=== PATIENT | male | born 1950 | race Caucasian/White ===

== ENCOUNTER 2018-06-15 09:38 | Outpatient (CLI) | payer MEDICARE ==
--- NOTE | 2018-06-15 12:54 | MRI ---
MRI OF THE RIGHT SHOULDER WITHOUT CONTRAST: INDICATION: Right shoulder injury. FINDINGS: There is a large full-thickness tear involving the supraspinatus at the footprint measuring 1.3 x 1.9 cm greatest mediolateral AP dimension respectively. There is moderate tendinosis of the intraarticu lar biceps tendon. There is a type II SLAP tear with high T2 signal seen extending from the level ju st anterior to the biceps anchor into the posterior superior labrum with a 2.7 cm mm paralabral cyst best seen on image 10 of series 11. This is also suspected on image 13 of series 4. The inferior gl enohumeral labral ligamentous complex appears intact. The glenohumeral articular surface is normal-a ppearing. There is mild to moderate AC joint osteoarthrosis. There is moderate tendinosis of the hightower praspinatus. There is fluid in the subacromial subdeltoid space. There is mild to moderate tendinos is of the subscapularis. The biceps tendon is located. IMPRESSION: 1. Full-thickness supraspinatus tear. 2. Type II superior labrum anterior to posterior tear with paralabral cyst seen along the posterior superior aspect of the glenohumeral joint. 3. Moderate acromioclavicular joint osteoarthrosis. 4. Moderate intraarticular biceps tendinosis and moderate supraspinatus and subscapularis tendinosis . POS: [facility]
== END 2018-06-15 09:39 | disposition home or self-care (01) ==
LOC: TBSIIMAG 09:38
PROVIDERS: ATTEND Orthopaedic Surgery
DX: S46.011A Strain of muscle(s) and tendon(s) of the rotator cuff of right shoulder, initial encounter (principal); S43.431A Superior glenoid labrum lesion of right shoulder, initial encounter; M19.011 Primary osteoarthritis, right shoulder; M75.21 Bicipital tendinitis, right shoulder; M75.81 Other shoulder lesions, right shoulder

== ENCOUNTER 2018-07-28 07:47 | Outpatient (CLI) | payer MEDICARE ==
--- NOTE | 2018-07-28 10:50 | ULT ---
BILATERAL RENAL ULTRASOUND: HISTORY: Renal cysts. COMPARISON: 07/24/2017 TECHNIQUE: Multiplanar bowers-scale and color Doppler images were obtained in a renal ultrasound. FINDINGS: There are anechoic cysts in the right kidney, measuring up to 4 cm in size. There is an anechoic cys t in the left kidney, measuring up to 2.9 cm in size. No hydronephrosis is seen. There is normal co rtical echogenicity. The kidneys measure 10.5 and 10.9 cm in length on the right and left, respectiv velia. Limited visualization of the urinary bladder is unremarkable. IMPRESSION: Stable bilateral renal cysts. POS: [facility]
== END 2018-07-28 07:48 | disposition home or self-care (01) ==
LOC: ULT 07:47
PROVIDERS: ATTEND Urology
DX: N28.1 Cyst of kidney, acquired (principal); Z12.5 Encounter for screening for malignant neoplasm of prostate; R35.0 Frequency of micturition
CPT/HCPCS: 76770; 80048; 81003; G0103; 36415

== ENCOUNTER 2018-08-20 08:23 | Outpatient (CLI) | payer MEDICARE ==
[2018-08-20 09:50] LABS: Mean Corpuscular HGB CONC 33.6 g/dL (32.0-36.0); Mean Corpuscular Hemoglobin 31.2 pg (27.0-31.0); Mean Corpuscular Volume 92.7 fL (78.0-98.0); Mean Platelet Volume 7.6 fL (7.4-10.4); Platelet Count 203 thou/uL (130-400); RBC Distribution Width 11.5 % (11.5-14.5); Red Blood Cell (RBC) Count 4.81 mill/uL (4.70-6.10); White Blood Cell (WBC) Count 5.8 thou/uL (4.8-10.8)
[2018-08-20 10:13] LABS: Anion Gap 10 mmol/L (10-20); BUN (Urea Nitrogen) 23 mg/dL (8.4-25.7); Calc. Creatinine Clearance 0 mL/min (70-130); Calcium 9.5 mg/dL (7.8-10.44); Carbon Dioxide 28 mmol/L (23-31); Chloride 106 mmol/L (98-107); Estimated GFR-MDRD 56; Glucose 103 mg/dL (80-115); Potassium 4.2 mmol/L (3.5-5.1); Sodium 140 mmol/L (136-145)
--- NOTE | 2018-08-20 15:22 | EKG ---
Test Reason : Blood Pressure : / mmHG Vent. Rate : 055 BPM Atrial Rate : 055 BPM P-R Int : 190 ms QRS Dur : 084 ms QT Int : 406 ms P-R-T Axes : 019 063 061 degrees QTc Int : 388 ms Sinus bradycardia Cannot rule out Anterior infarct , age undetermined Abnormal ECG No previous ECGs available Confirmed by KARL MARIA, DR. Bryant ([id number]) on 08/20/2018 3:22:40 PM Referred By: NABOR Confirmed By:DR. Annette BARAJAS MD
== END 2018-08-20 08:24 | disposition home or self-care (01) ==
LOC: LABBT 08:23
PROVIDERS: ATTEND Orthopaedic Surgery
DX: Z01.818 Encounter for other preprocedural examination (principal); M75.101 Unspecified rotator cuff tear or rupture of right shoulder, not specified as traumatic
CPT/HCPCS: 80048; 85027; 93005; 93010

== ENCOUNTER 2018-08-28 05:46 | Day surgery (SDC) | payer MEDICARE ==
[2018-08-20 08:37] VITALS: BMI 33.0
[2018-08-28] MEDS ORDERED: CEFAZOLIN/Water 2 GM/20 ML SYRINGE ONE (06:06)
[2018-08-28] MEDS ORDERED: Fentanyl 100 MCG/2 ML VIAL ONE (06:35)
[2018-08-28] MEDS ORDERED: Midazolam HCl 2 mg/2 ml Vial ONE (06:35)
[2018-08-28] MEDS ORDERED: HYDROcodone/Acetaminophen 10/325 mg Tablet PO PRN ×2 (06:51)
[2018-08-28] MEDS ORDERED: Ketorolac Tromethamine 30 MG/ML VIAL IVP PRN (06:51)
[2018-08-28] MEDS ORDERED: Ropivacaine 0.2% 550 ML 550 ML NERVE BLCK SCH (06:51)
[2018-08-28] MEDS ORDERED: Zolpidem Tartrate 5 MG TAB PO PRN (06:51)
[2018-08-28] MEDS ORDERED: Ondansetron HCl/PF 4 MG/2 ML Vial IVP PRN (06:51)
[2018-08-28] MEDS ORDERED: traMADol HCl 50 MG TAB PO PRN ×2 (06:51)
[2018-08-28] MEDS ORDERED: Promethazine HCl 25 MG/ML VIAL IM PRN (06:51)
[2018-08-28] MEDS ORDERED: Fentanyl 100 MCG/2 ML VIAL IV PRN (06:52)
[2018-08-28] MEDS ORDERED: Ropivacaine 0.2% HCl/PF (40 MG/20 ML VIAL) ONE (09:45)
[2018-08-28] MEDS ORDERED: Ropivacaine 0.5% HCl/PF (150 MG/30 ML VIAL) ONE (09:45)
[2018-08-28] MEDS ORDERED: PROPOFOL 200 MG/20 ML VIAL ONE (10:26)
[2018-08-28] MEDS ORDERED: Ondansetron HCl/PF 4 MG/2 ML Vial ONE (10:26)
[2018-08-28] MEDS ORDERED: Lidocaine 1% PF 5 ML VIAL ONE (10:26)
[2018-08-28] MEDS ORDERED: Glycopyrrolate 0.2 MG/ML 5 ML SYRINGE ONE (10:26)
--- NOTE | 2018-08-28 11:26 | OP ---
DATE OF PROCEDURE: 08/28/2018 PREOPERATIVE DIAGNOSES: Rotator cuff tear, biceps tendinitis and SLAP tear right shoulder. PROCEDURES: Arthroscopic subacromial decompression, arthroscopic rotator cuff repair, arthroscopic b iceps tenotomy. SURGEON: Kvng Denise M.D. ANESTHESIA: General. MARGIN TRIMMER: Markos Russell PA-C. BLOOD LOSS: Minimal. SPECIMEN: None. DRAINS: None. COMPLICATIONS: None. NARRATIVE REPORT: The patient was taken to the operating room where general anesthesia was induced. The patient was placed in left lateral decubitus position. Right arm was prepped and draped in the usual sterile fashion. Fifteen pounds of traction was applied. Scope was placed in the glenohumeral joint. He really did not have any significant arthritis of the glenohumeral joint. Superior labrum was very fibrillated, the proximal biceps was hypertrophic and very poor quality. I tagged the leeroy ps and detached it proximally. The labrum was debrided. Scope was placed in subacromial bursa, exte nsive subacromial decompression was performed. CA ligament was taken down. Hemostasis was obtained. I freshened the greater tuberosity with a bur and then freshened up the rotator cuff tendon. I shilpa samuel 2 suture anchors through the roughened bone and sutured the rotator cuff down to bone with a good watertight repair. I used Arthrex corkscrew suture anchors, I tried to deliver the tendon from the rotator cuff, but in spite of the complete release I checked in the joint several times. The tendon was completely released inside, but could not be delivered through the cuff without making a large ho le in the cuff and I felt this was probably not indicated. Therefore, no tenodesis was performed. I left this with a tenotomy. The shoulder was drained. Portals closed with nylon suture. Sterile dr essings applied.
== END 2018-08-28 11:55 | disposition home or self-care (01) ==
LOC: SDC 05:46
PROVIDERS: ATTEND Orthopaedic Surgery
PROC: 0LQ14ZZ Repair Right Shoulder Tendon, Percutaneous Endoscopic Approach (ICD-10-PCS; principal; 2018-08-28)
PROC: 0RHJ44Z Insertion of Internal Fixation Device into Right Shoulder Joint, Percutaneous Endoscopic Approach (ICD-10-PCS; 2018-08-28)
PROC: 0RNJ4ZZ Release Right Shoulder Joint, Percutaneous Endoscopic Approach (ICD-10-PCS; 2018-08-28)
DX: M75.101 Unspecified rotator cuff tear or rupture of right shoulder, not specified as traumatic (principal); M75.21 Bicipital tendinitis, right shoulder; S43.431A Superior glenoid labrum lesion of right shoulder, initial encounter; I25.2 Old myocardial infarction; I25.10 Atherosclerotic heart disease of native coronary artery without angina pectoris; N40.0 Benign prostatic hyperplasia without lower urinary tract symptoms; Z79.02 Long term (current) use of antithrombotics/antiplatelets; Z79.82 Long term (current) use of aspirin; Z79.899 Other long term (current) drug therapy
CPT/HCPCS: 29826; 29827; 97139; A4306; G8984; G8985; G8986; J2001; J2250; J2405; J2704; J2795; J3010

== ENCOUNTER 2019-03-25 12:16 | Outpatient (CLI) | payer MEDICARE ==
--- NOTE | 2019-03-25 14:04 | MRI ---
MRI of lumbar spine: 03/25/2019 COMPARISON: None HISTORY: Back pain, lower extremity radiculopathy. TECHNIQUE: Multiplanar multisequence MR imaging of the lumbar spine without contrast FINDINGS: The sagittal STIR imaging demonstrates no focal area of osseous marrow edema. On the basis of 5 lumbar type vertebral bodies, the conus medullaris terminates at the T12 level. T12-L1: Intervertebral disc height and signal intensity within normal limits. No central canal or tacos ral foraminal stenosis. L1-2: There is an extradural lesion centered within the right neural foramen measuring 1.4 cm in chavez sverse dimension. It is hypointense on T1-weighted imaging and slightly hyperintense on T2-weighted imaging but not as hyperintense as expected for a perineural sleeve cyst. Thus, solid lesion cannot b e excluded and follow-up imaging with contrast media advised. There is disc desiccation and minimal disc bulge with no associated central canal or left neural foraminal stenosis. Right neural foraminal stenosis on the basis of above described extradural lesion. L2-3: Mild bilateral facet hypertrophy and hypertrophy of the ligamentum flavum. Mild disc space narr owing and disc desiccation with mild disc bulge. No significant central canal or neural foraminal stenosis. L3-4: There is disc space narrowing, disc desiccation, and mild disc bulge with no central canal sten osis. Bilateral facet and uncovertebral osteophyte formation noted with mild left neural foraminal stenosis. No significant right neural foraminal stenosis. L4-5: There is disc space narrowing and disc desiccation with mild disc bulge. There is a left parace ntral annular tear with an associated left paracentral disc herniation causing significant left lateral recess stenosis. Disc herniation measures 8-9 mm in craniocaudal dimension and demonstrates m ild inferior migration. Mild central canal stenosis. Bilateral facet hypertrophy with mild bilateral neural foraminal stenosis, right greater than left. L5-S1: Disc space narrowing and disc desiccation with mild disc bulge. Bilateral facet hypertrophy. N o significant central canal stenosis. Mild right and moderate left neural foraminal stenosis. T2 hyperintense lesions are noted within both kidneys suggesting bilateral renal cysts. IMPRESSION: 1. Left paracentral disc herniation at L4-5 with associated left lateral recess stenosis. 2. Nonspecific lesion within the neural foramen on the right at L1-2. Please see above discussion. Po st contrast imaging advised for further assessment. CODE T
== END 2019-03-25 12:17 | disposition home or self-care (01) ==
LOC: MRI 12:16
PROVIDERS: ATTEND Orthopaedic Surgery
DX: M51.16 Intervertebral disc disorders with radiculopathy, lumbar region (principal); M48.061 Spinal stenosis, lumbar region without neurogenic claudication; G95.9 Disease of spinal cord, unspecified
CPT/HCPCS: 72148

== ENCOUNTER 2019-06-17 10:11 | Outpatient (CLI) | payer MEDICARE ==
--- NOTE | 2019-06-17 11:46 | RAD ---
EXAM: 4 views of the lumbosacral spine HISTORY: Low back pain COMPARISON: None FINDINGS: 4 views of the lumbosacral spine shows normal height and alignment of the vertebral bodies without fracture or subluxation. Intervertebral discs are narrowed throughout the lumbar spine with small to moderate surrounding osteophytes. Alignment is unchanged with flexion and extension. Lens Inserter ior facet arthrosis is seen in the lower lumbosacral spine. The sacroiliac joints are unremarkable. IMPRESSION: Degenerative changes of the lumbar spine with unchanged alignment with bending
--- NOTE | 2019-06-17 13:13 | MRI ---
MRI LUMBAR SPINE WITH AND WITHOUT CONTRAST: DATE: 06/17/2019. 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 M48.061, spinal stenosis, lumbar region, without neurogenic claudi cation. M54.16, lumbar radiculopathy. M51.26, lumbar herniated disk. M51.36, degenerative disk dis ease, lumbar. M54.5, low back pain. 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 COMPARISON: Noncontrast MRI 03/25/2019. TECHNIQUE: Multiple sequences obtained in axial and sagittal planes, pre and post IV injection of gadolinium-bas ed contrast agent: MultiHance. FINDINGS: For the purposes of this report, it will be assumed that there are 5 lumbar-type vertebrae. The vert ebral body heights are maintained. Bone marrow signal is normal. No high-grade disk space narrowing at any level. No spondylolisthesis. Conus medullaris terminates at T12-L1. Bilateral prominent shahrzad al cysts. The findings by individual levels are as follows: T12-L1: Normal. L1-2: Previously, there was a dumbbell shaped mass in the the right neural foramen, with its medial component indenting and effacing the right lateral aspect of the thecal sac. There is no longer effa cement of the right lateral aspect of the thecal sac. In fact, on the T2 weighted images, the mass h as either completely resolved or almost resolved. On the precontrast T1 weighted axial images, there is a subtle finding of a small region of hypointensity at the right lateral epidural space/proximal neural foramen, which enhances strongly, consistent with scar tissue or granulation tissue. Since th ere is no history of surgical resection, it is most likely that this spontaneously shrinking mass pro bably represents an extruded disk herniation which has involuted either completely or almost complete ly (except for the enhancing reactive tissues). The thecal sac has a completely normal appearance no w. Cauda equina is normal. No central stenosis or high-grade neural foraminal stenosis. L2-3: Mild disk bulge. Mild to moderate central spinal canal stenosis and thecal sac stenosis mostl y on a congenital basis due to developmentally short pedicles. No high-grade neural foraminal stenos is. L3-4: No high-grade central stenosis. Mild bilateral facet DJD. Mild to moderate bilateral neural foraminal stenosis. Slight degenerative retrolisthesis of L3 on L4. Mild disk bulge. L4-5: Diffuse disk bulge. Previously, there was a central, bilateral paracentral, and left lateral disk herniation. The left lateral disk extrusion component was previously impinging on left-sided ne rve roots. Now, the left lateral component has significantly involuted spontaneously. The central c omponent remains, and it still mildly displaces the bilateral L5 nerve roots. The residual disk pramod iation causes mild central spinal canal stenosis, and some lateral recess stenosis. Moderate right n eural foraminal stenosis and mild to moderate left neural foraminal stenosis. Moderate bilateral fac et DJD. L5-S1: Diffuse disk bulge. Severe right facet DJD. Mild to moderate left facet DJD. Mild to moder ate right neural foraminal stenosis. Moderate left neural foraminal stenosis. No central stenosis. IMPRESSION: 1. Interval involution of the right neural foraminal mass at L1-2. Currently, there is enhancing ti ssue at the right lateral epidural space which presumably represents either granulation tissue or sca r tissue. This is consistent with spontaneously involuting right lateral and far lateral extruded di sc fragment. 2. Interval partial involution of the extruded disk herniation (more specifically resolution of the left lateral component) at L4-5. Residual central component of disk herniation remains at that level . 3. No high-grade central spinal canal stenosis at any level. 4. Facet osteoarthrosis at mid and lower levels. JN R POS: [facility]
== END 2019-06-17 10:12 | disposition home or self-care (01) ==
LOC: BICMRI 10:11
PROVIDERS: ATTEND Physician Assistant Surgical
DX: M48.061 Spinal stenosis, lumbar region without neurogenic claudication (principal); M51.16 Intervertebral disc disorders with radiculopathy, lumbar region; D48.0 Neoplasm of uncertain behavior of bone and articular cartilage; D33.4 Benign neoplasm of spinal cord; M47.26 Other spondylosis with radiculopathy, lumbar region
CPT/HCPCS: 72110; 72158; 82565

== ENCOUNTER 2019-08-17 11:34 | Outpatient (CLI) | payer MEDICARE ==
--- NOTE | 2019-08-17 12:10 | ULT ---
US Renal Bilateral STANDARD History: N28.1 complex renal cyst Comparison: Renal ultrasound 2018 Findings: Real-time grayscale and color evaluation of the kidneys and urinary bladder was performed. Right kidney measures 10.7 x 6.1 x 8.9 cm and the left kidney measures 10.7 x 5.7 x 6.3 cm. Urinary b ladder volume is 288 mL. No mass or hydronephrosis. There are 2 cysts in the right kidney, largest measuring up to 4.4 cm. The se are the interpolar/lower pole right kidney. Within the left kidney is a interpolar 2.7 cm simple cyst. No abnormal mass or hydronephrosis. Impression: Unchanged bilateral renal cysts cysts.
== END 2019-08-17 11:35 | disposition home or self-care (01) ==
LOC: BICULT 11:34
PROVIDERS: ATTEND Urology
DX: N28.1 Cyst of kidney, acquired (principal)
CPT/HCPCS: 76770; 80048; 81001; 87086; G0103

== ENCOUNTER 2020-08-28 12:13 | Outpatient (CLI) | payer MEDICARE ==
--- NOTE | 2020-08-28 13:39 | ULT ---
BILATERAL RENAL ULTRASOUND COMPLETE: HISTORY: Complex renal cyst. COMPARISON: 08/17/2019. FINDINGS: There are stable bilateral renal cysts up to 4.8 cm on the right side and 2.5 cm on the left side. N o renal hydronephrosis. Unremarkable-appearing bladder. IMPRESSION: Stable bilateral renal cysts without hydronephrosis. POS: [facility]
== END 2020-08-28 12:14 | disposition home or self-care (01) ==
LOC: BICULT 12:13
PROVIDERS: ATTEND Urology
DX: N28.1 Cyst of kidney, acquired (principal)
CPT/HCPCS: 76770

== ENCOUNTER 2021-04-05 12:00 | Outpatient (CLI) | payer MEDICARE ==
[2021-04-05] MEDS ORDERED: Iopamidol 370 76% 100 ML VIAL ONE (14:53)
== END 2021-04-05 12:01 | disposition home or self-care (01) ==
LOC: CT 12:00
PROVIDERS: ATTEND Urology
DX: N40.1 Benign prostatic hyperplasia with lower urinary tract symptoms (principal); N28.1 Cyst of kidney, acquired; M54.5 Low back pain
CPT/HCPCS: 74178; Q9967

== ENCOUNTER 2021-09-28 13:07 | Outpatient (CLI) | payer MEDICARE | END 2021-09-28 13:08 | disposition home or self-care (01) | LOC: BICULT 13:07 | PROVIDERS: ATTEND Urology | DX: N28.1 Cyst of kidney, acquired (principal); N40.1 Benign prostatic hyperplasia with lower urinary tract symptoms; Z12.5 Encounter for screening for malignant neoplasm of prostate; R35.0 Frequency of micturition | CPT/HCPCS: 36415; 76770; 80048; 81001; G0103 ==

== ENCOUNTER 2022-09-20 12:43 | Outpatient (CLI) | payer MEDICARE | END 2022-09-20 12:44 | disposition home or self-care (01) | LOC: BICULT 12:43 | PROVIDERS: ATTEND Urology | DX: N28.1 Cyst of kidney, acquired (principal) | CPT/HCPCS: 76770 ==

== ENCOUNTER 2024-09-08 12:21 | Outpatient (CLI) | payer MEDICARE ==
[~2024-09-08 12:21] MED LIST: Iopamidol 370 76% 100 ML VIAL ONE
== END 2024-09-08 12:22 | disposition home or self-care (01) ==
LOC: BICCT 12:21
PROVIDERS: ATTEND Urology
DX: Z12.5 Encounter for screening for malignant neoplasm of prostate (principal); N40.1 Benign prostatic hyperplasia with lower urinary tract symptoms; N28.1 Cyst of kidney, acquired; R35.0 Frequency of micturition; N43.3 Hydrocele, unspecified
CPT/HCPCS: 74178; 82565; Q9967